=== PATIENT | male | born 1990 | race Caucasian/White ===

== ENCOUNTER 2025-08-14 09:08 | Emergency (ER) | payer OTHER ==
[~2025-08-14] VITALS: Ht 175.3 cm; Wt 79.0 kg
[2025-08-14 09:10] VITALS: BP 139/92; PULSE 98; RESP 16; TEMP 36.7; O2SAT 99
== END 2025-08-14 09:16 | disposition left against medical advice (07) ==
LOC: ER 09:08
DX: Z00.00 Encounter for general adult medical examination without abnormal findings (principal)
CPT/HCPCS: 99283